=== PATIENT | male | born 1975 | race Asian ===

== ENCOUNTER 2022-01-26 11:47 | Emergency (ER) | payer OTHER ==
[~2022-01-26] VITALS: Ht 172.7 cm; Wt 88.5 kg
[2022-01-26 11:57] VITALS: BP 152/76
[2022-01-27] MEDS ORDERED: PROM118S5 PO (21:15)
[2022-01-27] MEDS ORDERED: AZIT250T13 PO (21:15)
[2022-01-27] MEDS ORDERED: IBUP-1955 PO (21:15)
== END 2022-01-26 12:09 | disposition home or self-care (01) ==
LOC: ER 11:47
DX: B34.9 Viral infection, unspecified (principal); I10 Essential (primary) hypertension

== ENCOUNTER 2022-01-27 19:13 | Emergency (ER) | payer OTHER ==
[~2022-01-27] VITALS: Ht 160 cm; Wt 88.5 kg
[2022-01-27 19:48] VITALS: BP 172/81
[2022-01-27] MEDS ORDERED: IBUPROFEN 600 MG TABLET PO ONE (21:00)
[2022-01-27] MEDS ORDERED: IBUPROFEN 600 MG TABLET ONE (21:09)
[2022-01-27] MEDS ORDERED: PROM118S5 PO (21:15)
[2022-01-27] MEDS ORDERED: AZIT250T13 PO (21:15)
[2022-01-27] MEDS ORDERED: IBUP-1955 PO (21:15)
== END 2022-01-27 21:29 | disposition home or self-care (01) ==
LOC: ER 19:13
DX: U07.1 COVID-19 (principal); J12.82 Pneumonia due to coronavirus disease 2019; I10 Essential (primary) hypertension
CPT/HCPCS: 71045-TC